=== PATIENT | male | born 1945 | race Caucasian/White ===

== ENCOUNTER 2025-04-04 05:23 | Day surgery (SDC) | payer OTHER ==
[2025-03-28 13:45] LABS: MEAN PLATELET VOLUME 8.9 FL (7.4-10.4); PRE OP HEMATOCRIT 42.9 % (42.0-52.0); PRE OP HEMOGLOBIN 14.6 g/dL (14.0-17.9); PRE OP PLATELET COUNT 206 X10'3 (140-440); PRE OP WHITE BLOOD COUNT 7.1 10'3 (4.8-10.8); RED CELL DISTRIBUTION WIDTH 13.6 % (11.5-14.5)
[2025-03-28 13:54] LABS: LEUKOCYTE ESTERASE ,URINE NEGATIVE (Neg); NITRITES, URINE NEGATIVE (Neg); OCCULT BLOOD,URINE NEGATIVE (Neg)
[2025-03-28 13:58] LABS: UA COLLECTION TYPE NON-SPECIFIED
[2025-03-28 13:59] LABS: MUCUS STRANDS MODERATE /LPF (Neg)
[2025-03-28 14:00] LABS: HYALINE CASTS 0-3 /LPF (NEGATIVE); SQUAMOUS EPITHELIAL CELL,UR FEW /LPF (FEW)
[2025-03-28 14:02] LABS: COARSE GRANULAR CAST 0-3 /LPF (NEGATIVE)
[2025-03-28 14:03] LABS: CREATININE 0.96 MG/DL (0.60-1.10); PRE OP ALT 27 U/L (30-65); PRE OP ANION GAP 3 (8-16); PRE OP AST 19 U/L (10-37); PRE OP BILIRUB, TOTAL 2.0 MG/DL (0.0-1.0); PRE OP GLUCOSE 101 MG/DL (70-104); PRE OP POTASSIUM 3.6 MMOL/L (3.4-5.1); PRE OP SODIUM 141 MMOL/L (135-145); TOTAL CARBON DIOXIDE 30.8 MMOL/L (24-32); eGFR 76 ML/MIN
[2025-04-04] VITALS (8 sets, daily range): BP systolic 101–121; BP diastolic 63–72; PULSE 63–73; RESP 12–16; TEMP 96; O2SAT 94–97
[~2025-04-04] VITALS: Ht 172.7 cm; Wt 80.7 kg
[~2025-04-04 05:23] MED LIST: ROSU20TA98 PO; TAMS-55 PO
[2025-04-04] MEDS: ringers solution, lacted 1,000 ML IV SCH (05:30)
--- NOTE | 2025-04-04 06:36 | ELECTROCARDIOGRAPH REPORT ---
[facility] Test Date: 2025-04-04 Test Time: 06:34:51 Pat Name: CAROLYN LOPEZ Department: [facility] Patient ID: [id number] Room: Gender: M Cistern Room Operator: nelli : 1945 Requested By: LESA HALL Order Number: [id number] Reading MD: Dr. PRISCILLA Bejarano Measurements Intervals [place] Rate: 61 P: 56 [place]: 176 QRS: 11 QRSD: 90 T: 7 QT: 420 QTc: 423 Interpretive Statements Sinus rhythm Electronically Signed On 04-04-2025 18:40:[address] PRISCILLA Bejarano Please click the below link to view image of tracing.
[2025-04-04] MEDS ORDERED: bacitracin 15gm ointment TP ONE (06:43)
[2025-04-04] MEDS ORDERED: BUPIVAcaine 0.5% inj/PF 30 ML ONE (06:43)
[2025-04-04] MEDS: ceFAZolin 2gm/dext,iso 50mL 50 ML IV ONE (07:05)
[2025-04-04] MEDS ORDERED: midazolam 1 mg/ML 2ml injection ONE (07:24)
[2025-04-04] MEDS ORDERED: fentaNYL/PF 50MCG/1 ML 2ML syringe ONE (07:24)
[2025-04-04] MEDS ORDERED: propofol inj 20 ML IV ONE (07:37)
[2025-04-04] MEDS ORDERED: labetalol 20mg/4ml (5mg/ml) syringe IV PRN (08:05)
[2025-04-04] MEDS ORDERED: ringers solution, lacted 1,000 ML IV SCH (08:05)
[2025-04-04] MEDS ORDERED: hydrALAZINE 20mg/ml inj. IV PRN (08:05)
[2025-04-04] MEDS ORDERED: HYDROmorphone/PF 0.2 MG/ML SYRINGE IV PRN ×2 (08:05)
[2025-04-04] MEDS ORDERED: morphine 4 MG/ML inj SYRINge IV PRN (08:05)
[2025-04-04] MEDS ORDERED: ondansetron/PF 4mg/2ml inj IV PRN (08:05)
[2025-04-04] MEDS: acetaminophen 1,000mg/100ml IV 100 ML IV PRN (08:19)
== END 2025-04-04 08:44 | disposition home or self-care (01) ==
LOC: PAS 05:23
PROVIDERS: ATTEND Podiatrist Foot & Ankle Surgery
DX: M67.471 Ganglion, right ankle and foot (principal); M89.8X7 Other specified disorders of bone, ankle and foot; M19.071 Primary osteoarthritis, right ankle and foot; I25.10 Atherosclerotic heart disease of native coronary artery without angina pectoris; E78.5 Hyperlipidemia, unspecified; M19.90 Unspecified osteoarthritis, unspecified site; Z79.899 Other long term (current) drug therapy; Z95.1 Presence of aortocoronary bypass graft; Z98.890 Other specified postprocedural states; Z83.3 Family history of diabetes mellitus
CPT/HCPCS: 28090; 28122; 36415; 80053; 81001; 82948; 85025; 93005; A6222; J0131; J2250; J2704; J3010; J7030; J7120; L3260; Z7506; Z7512; A4215; A4618; A6253; A6449; A7000